=== PATIENT | female | born 1995 | race Caucasian/White ===

== ENCOUNTER 2017-07-20 15:03 | Emergency (ER) | payer BC ==
[~2017-07-20] VITALS: Ht 157.5 cm; Wt 63.0 kg
[2017-07-20 15:06] VITALS: TEMP 36.8; Ht 157.5 cm; Wt 63.0 kg
[2017-07-20 17:07] VITALS: BP 129/76; PULSE 59; O2SAT 100
--- NOTE | 2017-07-20 17:07 | DIAGNOSTIC IMAGING REPORT ---
TRANSVAG-FEMALE PELVIS CLINICAL HISTORY: 21 years-old Female presenting with dyspareunia, right lower quadrant pain. TECHNIQUE: Real-time grayscale and color and spectral Doppler ultrasound imaging of the pelvis was performed first using a transabdominal probe and subsequently transvaginal for better characterization. COMPARISON: None. FINDINGS: Uterus: Normal. Anteverted. The uterus measures 7.0 x 2.8 x 3.5 cm. Endometrial stripe measures 5 mm in thickness. Endometrium normal-appearing. Cervix normal. Right adnexa: Right ovary normal. Right ovary measures 2.5 x 1.0 x 2.8 cm. Normal color Doppler flow and arterial and venous waveforms within the ovarian parenchyma. Left adnexa: Left ovary normal. Left ovary measures 1.9 x 1.6 x 2.6 cm. Normal color Doppler flow and arterial and venous waveforms within the ovarian parenchyma. Other: Trace free fluid, likely physiologic. IMPRESSION: No significant abnormality identified within the pelvis. Electronically signed by: Robi Pan M.D. 07/20/2017 5:06 PM Dictated Date/Time: 07/20/2017 5:03 PM
--- NOTE | 2017-07-20 18:38 | EMERGENCY ROOM VISIT NOTE ---
History First contact with patient: 15:09 Chief Complaint: ABDOMINAL PAIN Stated Complaint: ABDOMINAL PAIN ON R SIDE Nursing Triage Summary: RLQ pain x 1 week. Pain increased today. Denies N/V, diarrhea, constipation. Denies urinary symptoms. Denies anything making the pain better or worse. History of Present Illness The patient is a 21 year old female who presents to the Emergency Room with complaints of right lower quadrant/vaginal pain. The patient reports that she and her boyfriend were having sex 2 days ago, and had significant discomfort with deep penetration. The patient was in a missionary position. She denies any recent significant vaginal dryness. The patient is currently menstruating. She did notice some dark brown blood shortly after coitus, but has had no persistent vaginal bleeding. It is noted that she had sex with her boyfriend 2 days prior to that that was not painful. She denies history of dyspareunia, ovarian cysts, PID or STI. The patient is not concerned for an STI, reporting that she has been in this relationship for several years. The patient did perform several home tests that were negative until she started menstruation yesterday. She denies any alleviating or aggravating factors, including movement. The pain does not radiate to the back or down the legs. She denies any urinary symptoms, reporting that she has had a urinary tract infection in the past and knows what it feels like. She denies any recent yeast infection or vaginal itching. The patient denies prior . She rates her discomfort a 6 out of 10. Review of Systems HEENT: Denies dizziness, visual problems, hearing loss, tinnitus. Denies difficulty swallowing or oral lesions. PULMONARY: Denies cough, shortness of breath, sputum production or hemoptysis. CARDIOVASCULAR: Denies chest pain, palpitations, dyspnea on exertion, orthopnea or peripheral edema. GASTROINTESTINAL: Denies diarrhea, constipation, nausea, vomiting, or abdominal pain. GENITOURINARY: Denies dysuria, frequency, urgency or nocturia. Otherwise see history of present illness. NEUROLOGIC: Denies history of epilepsy, CVA, TIA or chronic headaches. MUSCULOSKELETAL: Denies history of joint tenderness/swelling. SKIN: Denies rashes or lesions. PSYCHIATRIC: Denies history of depression or mental illness. ENDOCRINE: Denies history of diabetes or thyroid disorders. Past Medical/Surgical History Medical Problems: (1) No significant past medical history Surgical Problems: (1) No history of previous surgery Family History Unremarkable Social History Smoking Status: Never Smoker Alcohol Use: occasionally Marital Status: single, in relationship Housing Status: lives with significant other Occupation Status: employed Physical Exam Vital Signs Date Time Temp Pulse Resp B/P (MAP) Pulse Ox O2 Delivery O2 Flow Rate FiO2 07/20/17 17:07 59 16 129/76 100 Room Air 07/20/17 15:06 36.8 76 17 134/79 100 Room Air Physical Exam CONSTITUTIONAL: Healthy and well nourished. Alert and oriented X 3 with positive affect. Patient does not appear in any acute distress. HEENT: Normocephalic, atraumatic. Pupils equal, round and reactive. NECK: Full active range of motion without discomfort. RESPIRATORY: Clear to auscultation bilaterally with no wheezing, crackles, rhonchi or stridor. CARDIOVASCULAR: Regular rate and rhythm with no murmurs, rubs or gallops. GASTROINTESTINAL: Bowel sounds present in all quadrants. Patient has mild right lower abdominal/suprapubic discomfort to palpation. Negative McBurney's point tenderness. Negative Rovsing sign. Negative psoas/obturator sign. Negative CVA tenderness. Negative heeltap. GENITOURINARY: With a female ED electronics technician apprentice present, speculum and bimanual pelvic exam were performed. Normal external genitalia without any concerning lesions. Speculum exam does not show any vaginal wall trauma, lacerations or ecchymosis. Cervix is visualized with mild bleeding. There is no ecchymosis, overriding erythema or abnormal drainage. Bimanual exam shows no adnexal tenderness or palpable masses. Negative cervical motion tenderness. MUSCULOSKELETAL: Full range of motion of all joints without discomfort. Negative logroll of the right hip. Flexion and extension also does not cause discomfort. INTEGUMENTARY: No rash or other significant dermatologic conditions noted. NEUROLOGIC: No focal neurologic deficits noted. Medical Decision & Procedures ER Provider Diagnostic Interpretation: Pelvic and transvaginal ultrasound studies were reviewed and were normal. Radiologist report is as follows: TRANSVAG-FEMALE PELVIS CLINICAL HISTORY: 21 years-old Female presenting with dyspareunia, right lower quadrant pain. TECHNIQUE: Real-time grayscale and color and spectral Doppler ultrasound imaging of the pelvis was performed first using a transabdominal probe and subsequently transvaginal for better characterization. COMPARISON: None. FINDINGS: Uterus: Normal. Anteverted. The uterus measures 7.0 x 2.8 x 3.5 cm. Endometrial stripe measures 5 mm in thickness. Endometrium normal-appearing. Cervix normal. Right adnexa: Right ovary normal. Right ovary measures 2.5 x 1.0 x 2.8 cm. Normal color Doppler flow and arterial and venous waveforms within the ovarian parenchyma. Left adnexa: Left ovary normal. Left ovary measures 1.9 x 1.6 x 2.6 cm. Normal color Doppler flow and arterial and venous waveforms within the ovarian parenchyma. Other: Trace free fluid, likely physiologic. IMPRESSION: No significant abnormality identified within the pelvis. Laboratory Results Test 07/20/17 15:50 07/20/17 15:54 Urine Color YELLOW Urine Appearance CLEAR (CLEAR) Urine pH 7.0 (4.5-7.5) Urine Specific [place] 1.007 (1.000-1.030) Urine Protein NEG (NEG) Urine Glucose (UA) NEG (NEG) Urine Ketones NEG (NEG) Urine Occult Blood NEG (NEG) Urine Nitrite NEG (NEG) Urine Bilirubin NEG (NEG) Urine Urobilinogen NEG (NEG) Urine Leukocyte Esterase NEG (NEG) Urine WBC (Auto) 0 /hpf (0-5) Urine RBC (Auto) 0-4 /hpf (0-4) Urine Hyaline Casts (Auto) 0 /lpf (0-5) Urine Epithelial Cells (Auto) 0-5 /lpf (0-5) Urine Bacteria (Auto) NEG (NEG) Urine Test NEG (NEG) Date/Time Source Procedure Growth Status 07/20/17 15:50 Cervix Swab Trichomonas Preparation - Final Complete Urine dip shows hematuria, likely secondary to contamination with menstruation. Urine otherwise does not appear infected. Urine is negative. Vaginal cultures, GC and chlamydia RNA testing and Trichomonas wet prep were ordered. ED Course Patient history and physical exam were performed. Nurse's notes were reviewed. Vital signs were reviewed and were normal. The patient refused any analgesics on initial exam. Pelvic exam was performed and was unremarkable. Pelvic ultrasound was normal. Urinalysis showed no hematuria or signs of infection. Additional vaginal cultures, GC/Chlamydia testing and Trichomonas testing were ordered and were pending at the time of patient discharge. The patient was given instructions on pelvic rest, and follow-up with her PRINT TRAFFIC MANAGER on Tuesday as scheduled. She was encouraged to alternate ibuprofen and Tylenol as needed for additional pain relief. The patient was happy with plan of care, voiced understanding of all discharge instructions, and denied any significant discomfort at the time of discharge. Medical Decision Patient presents with complaint of dyspareunia symptoms that were not present 2 days prior to her last coitus. Her workup today is not suggestive of ovarian cyst/torsion or other significant pelvic trauma. PID was considered, however the patient does not have any cervical motion tenderness. She is not . The patient has no significant vaginal discharge to suggest trichomonas or bacterial vaginitis. STI testing is currently pending. Medication Reconcilliation Current Medication List: was personally reviewed by me Blood Pressure Screening Patient's blood pressure: Normal blood pressure Impression Primary Impression: Dyspareunia Additional Impression: Pelvic pain Departure Information Referrals No Doctor, Assigned (PCP) Patient Instructions My [facility] Problem Qualifiers
== END 2017-07-20 17:32 | disposition home or self-care (01) ==
LOC: C.EDB 15:04 → C.EDA 17:32
DX: N94.10 Unspecified dyspareunia (principal); R10.2 Pelvic and perineal pain; Z87.440 Personal history of urinary (tract) infections

== ENCOUNTER → 2017-07-22 | Outpatient (CLI) | payer BC | END | disposition home or self-care (01) | LOC: C.PAPS 17:46 | PROVIDERS: ATTEND Physician Assistant | DX: Z01.419 Encounter for gynecological examination (general) (routine) without abnormal findings (principal) ==